=== PATIENT | male | born 1965 | race Caucasian/White ===

== ENCOUNTER 2024-04-05 07:57 | Outpatient (CLI) | payer OTHER, SELFPAY ==
[2024-04-05 08:32] LABS: Alanine Aminotransferase 34 U/L (0-41); Albumin Level 4.2 g/dL (3.5-5.2); Alkaline Phosphatase 88 U/L (40-130); Anion Gap 11.3 (5-19); Aspartate Amino Transferase 17 U/L (0-40); Blood Urea Nitrogen 15 mg/dL (6-20); Calcium 8.5 mg/dL (8.5-10.5); Carbon Dioxide 27 mmol/L (22-29); Chloride 101 mmol/L (98-107); Chol HDL Ratio 4.22 mg/dL (1.0-5.00); Cholesterol 156 mg/dL (0-200); Estmated Average Glucose 237; Globulin 2.1 g/dL (1.3-4.6); Glomerular Filtration Rate 86.4 mL/min (90-130); Glucose 289 mg/dL (65-115); HDL Cholesterol 37 mg/dL (60-100); Hemoglobin A1C 9.9 % (4.0-6.0); LDL Cholesterol Calculated 92 mg/dL (50-129); LDL HDL Ratio 2.49 RATIO (0.00-3.22); Osmolality Calculated 291 mOsm/kg (285-295); Potassium 4.3 mmol/L (3.5-5.1); Sodium 135 mmol/L (136-145); Total Bilirubin 0.6 mg/dL (0.15-1.2); Total Protein 6.3 g/dL (6.6-8.7); Triglycerides 136 mg/dL (0-150)
== END 2024-04-05 07:58 | disposition home or self-care (01) ==
PROVIDERS: Visit Provider Family Medicine
DX: I10 Essential (primary) hypertension (principal); E11.9 Type 2 diabetes mellitus without complications
CPT/HCPCS: 36415; 80053; 80061; 83036